=== PATIENT | male | born 1945 | race Caucasian/White ===

== ENCOUNTER 2017-01-05 07:30 | Inpatient (IN) | payer OTHER ==
--- NOTE | ~2017-01-05 | DS ---
Discharge Summary [facility] [address] [place]. [address] NAME: DANNY HUDSON SR : 44 STATUS : DIS IN PAT#: [id number] AGE: 71 ADM/REG DATE : 01/05/17 MR#: [id number] REPORT SERV DATE: 01/10/17 DICTATED BY: DARIO MONTOYA DATE: 01/09/17 REPORT STATUS : Draft TRANSCRIBED BY: MODL DATE: 01/09/17 ADMISSION DATE: 01/05/2017 DISCHARGE DATE: 01/09/2017 HOSPITAL COURSE: A 71-year-old male has a known history of diastolic heart failure; hypertrophic cardiomyopathy, status post septal myectomy; chronic COPD, on 2 L; chronic hypoxic respiratory failure, O2 dependent; CAD with history of CABG; paroxysmal atrial fibrillation, on Eliquis; CHRISTOPHER, noncompliant with CPAP; hypertension; hyperlipidemia; generalized anxiety disorder; depression; diabetes; hypothyroidism; CKD 3, baseline 1.5 to 1.9; PAD with subclavian stent and right carotid stent; secondary hypogonadism; pneumonia; peripheral neuropathy; known history of maze procedure. The patient came in, generalized weakness, went to the restroom. Did have presyncope to syncopal episode, left arm skin tear, dizziness. Significant nausea, vomiting, and diarrhea. The patient states he has been unable to afford going to his outpatient doctors. However, he apparently makes 1900 dollars for a month. Did try to request financial assistance. Had a CT abdomen and pelvis. Did not show any acute pathology. Trace intraperitoneal ascites identified. Heavy atherosclerosis in the aorta and multiple branches. Dr. Singh with GI was consulted for persistent nausea. He may well have had a vasovagal from his nausea. The patient has uncontrolled reflux as assessment. Placed on PPI b.i.d. Given cardiovascular risk, checked upper GI series for considering endoscopy. As a result, the patient had air contrast upper GI following oral ingestion of high-density barium CO2 crystals. Fluoro found small hiatal hernia and significant GERD of the cervical esophagus. The patient, as a result, feels much better. No more vomiting at this time with PPI b.i.d. therapy. Had an echocardiogram per patient request and showed moderate compromised left ventricle 35% compared to 45% in 12/2015. Severe anteroseptal hypokinesis has been noted previously. Severely compromised right ventricle, which has progressed. Moderately dilated left and right atria progressed, mild. AR is unchanged. As a result, the patient is to follow up with his heart physician. Did not endorse any chest pain or chest pressure. Did have some mild hypoglycemia, as the patient was more compliant with diet here in the hospital. Reduced his Levemir at night. 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 We will ask case management again to help with financial assistance and help with medication assistance and the patient access as an outpatient. Needs to follow up with Nephrology for CKD. Likely maximize his DILIP inhibitor as well as knowing that the patient used to spend two minutes going from a lying to standing position given significant orthostasis likely due to diabetic autonomic neuropathy. The patient also possibly has diabetic gastroparesis. Will need nuclear medicine study as an outpatient to confirm. In the interim, we will just need to maintain continued euglycemia. Given his CKD, reduced his Eliquis at this time. Defer to his store protection specialist regarding further titration. Family wanted the patient to go to the facility and try to facilitate; however, given the fact that Physical Therapy said he can go home with Home Health, the patient is not interested in paying out a cost at this time. DISCHARGE MEDICATIONS: Include Norvasc 5 p.o. daily; apixaban 2.5 p.o. b.i.d.; Lipitor 40 p.o. daily; as well as Plavix 75 p.o. daily; Cymbalta 60 p.o. q.h.s.; Zantac p.r.n.; gabapentin 300 p.o. b.i.d.; NovoLog sliding scale, see order set; insulin regular 8 to 12 Discharge Summary [facility] [id number] [facility] [place]. [address] NAME: DANNY HUDSON : 44 STATUS : DIS IN PAT#: [id number] AGE: 71 ADM/REG DATE : 01/05/17 MR#: [id number] REPORT SERV DATE: 01/10/17 DICTATED BY: DARIO MONTOYA DATE: 01/09/17 REPORT STATUS : Draft TRANSCRIBED BY: MODL DATE: 01/09/17 units subcu t.i.d. before meals; Synthroid 75 mcg p.o. q.a.m.; lisinopril 2.5 p.o. daily; metoprolol tartrate 50 p.o. b.i.d., consider possible carvedilol as an outpatient; Protonix 40 p.o. b.i.d., needs to do this for least three months and PPI p.o. daily thereafter; Spiriva 18 mcg capsule inhaled daily; Levemir Lantus 18 units subcu q.h.s.; Lasix 40 p.o. daily; Crestor 20 p.o. q.h.s. rather than Lipitor; we will hold off on the Imdur given his relatively normotensive state, give Lasix 20 mg p.o. daily p.r.n. increased swelling, shortness of breath, or weight gain more than or equal to 2 pounds. We will also educate the patient on spending two minutes from supine to standing transition to reduce orthostasis. CONSULTS: GI. PROCEDURES: See above including echo, which was requested by the family. Had stool studies that were negative. Did have some staph in his stool, looked like colonization given his procal was totally normal and had no white count abnormalities. C diff was negative. Crypto was negative. Blood cultures, all no growth to date. DISCHARGE DIAGNOSES: Nausea, vomiting, diarrhea, gastroesophageal reflux disease, orthostasis, chronic obstructive pulmonary disease, atrial fibrillation, chronic kidney disease 3, insulin-dependent diabetes likely autonomic neuropathy, orthostasis, likely gastroparesis. Pursue possible Reglan versus oral erythromycin as an outpatient. Nuclear medicine scan to confirm this. ROSARIO/RENETTA Dario Montoya DO / [id number] CC: DO Ivone Zelaya M.D.
--- NOTE | ~2017-01-05 | CN ---
Consultation Report [facility] [address] [place]. [address] NAME: DANNY HUDSON SR : 44 STATUS : ADM IN PAT#: [id number] AGE: 71 ADM/REG DATE : 01/05/17 MR#: [id number] REPORT SERV DATE: 01/07/17 DICTATED BY: VIOLETTE SINGH DATE: 01/07/17 REPORT STATUS : Draft TRANSCRIBED BY: RENETTA DATE: 01/07/17 GI CONSULTATION NOTE DATE OF CONSULTATION: 01/06/2017 REASON FOR CONSULTATION: Persistent nausea. HISTORY OF PRESENT ILLNESS: Mr. Hudson is a 71-year-old, white male who initially presented to [facility] with generalized weakness, however in the past few months, he also has had syncopal episode with dizziness which precipitated his admission, and GI is consulted because of his chronic nausea, vomiting, and more recent diarrhea. He reports that over the past 6 to 8 weeks, he has noticed increased regurgitation especially at night and has occasional dysphagia. He reports that when he eats food, on occasion it will come back up with sour eructation. He reports nonbloody soft to watery stools on occasion as well. He has a history of diastolic heart failure with peripheral arterial disease, hypertrophic cardiomyopathy, chronic kidney disease, stage III. He is status post CABG with Maze procedure, mitral valve repair, and myectomy of the septum. He is currently tolerating a liquid diet without any emesis. PAST MEDICAL HISTORY: Diastolic heart failure, hypertrophic cardiomyopathy, peripheral arterial disease, chronic kidney disease stage III, COPD on 2 L of oxygen, coronary artery disease, status post CABG, atrial fibrillation, obstructive sleep apnea, hypertension, dyslipidemia, anxiety, depression, diabetes, and hypothyroidism. PAST SURGICAL HISTORY: Septal myectomy, CABG with maze procedure, mitral valve repair, and penile implant. SOCIAL HISTORY: Quit tobacco in 1991. Denies any alcohol or drug use. FAMILY HISTORY: Coronary artery disease and leukemia. MEDICATIONS: Reviewed. ALLERGIES: REVIEWED. PHYSICAL EXAMINATION: VITAL SIGNS: The patient is afebrile. His vital signs are stable. GENERAL: The patient is awake, alert, and oriented x3. Well developed, well nourished, morbidly obese, in no acute distress. HEENT: Atraumatic, normocephalic, and anicteric. Mucous membranes moist. CARDIAC: S1, S2 with murmur 4/6. CHEST: Clear but decreased breath sounds bilaterally. ABDOMEN: Obese, soft, nontender, and nondistended. Bowel sounds normoactive. Consultation Report [facility] [address] [place]. [address] NAME: DANNY HUDSON SR : 44 STATUS : ADM IN PAT#: [id number] AGE: 71 ADM/REG DATE : 01/05/17 MR#: [id number] REPORT SERV DATE: 01/07/17 DICTATED BY: VIOLETTE SINGH DATE: 01/07/17 REPORT STATUS : Draft TRANSCRIBED BY: RENETTA DATE: 01/07/17 LABORATORY DATA: Show WBC 8.2, hemoglobin 11.6, hematocrit 35, platelets 175, and MCV is 85. Sodium 137, potassium 4, chloride 99, bicarb 28, BUN 28, creatinine 1.8, and glucose 68. Liver enzymes normal. Lipase normal. IMPRESSION AND PLAN: Sounds like the patient has uncontrolled reflux. He is on Protonix which he has been taking chronically at home at night. We would make sure he is on his pantoprazole 40 mg p.o. daily and taken on an empty stomach in the morning and then eating 30 to 60 minutes later. We will also check stool antigen for H. pylori and followup on his stool studies. Given the patient's cardiovascular risk, we will check an upper GI series before considering EGD and we will follow up on this exam. Continue diet and advance as tolerated. We will continue to follow with you. JESSENIA/RENETTA Violette Singh MD / [id number] CC: DO Ivone Zelaya M.D.
--- NOTE | ~2017-01-05 | HP ---
History And Physical [facility] [id number] [place]. [address] NAME: DANNY HUDSON SR : 44 STATUS : ADM IN PAT#: [id number] AGE: 71 ADM/REG DATE : 01/05/17 MR#: [id number] REPORT SERV DATE: 01/05/17 DICTATED BY: MLIO KIM DATE: 01/05/17 REPORT STATUS : Draft TRANSCRIBED BY: RENETTA DATE: 01/05/17 DATE OF ADMISSION: 01/05/2017 CHIEF COMPLAINT: Multiple. HISTORY OF PRESENT ILLNESS: The patient is a very pleasant 71-year-old white male with multitude of medical problems. The patient comes in today reporting generalized weakness. He states today he got up to go to the bathroom and returned to his bed and had a syncopal episode where he fell against the nightstand into the floor. He suffered a left arm skin tear. He states he has been weak and dizzy for about three weeks. Symptoms definitely get worse when he stands. He has also noted for the last month, he has had intermittent diarrhea, nausea, vomiting, diminished appetite, diminished p.o. intake. He states he vomits or has an episode of diarrhea pretty much every day. He has not had any documented fevers. He has not had any abdominal pain. He has not had any chest pain. The dizziness and weakness seemed to occur with activity when he gets up to walk around. He has not had any recent antibiotics and can really provide no further history. PAST MEDICAL HISTORY: 1. Diastolic heart failure. 2. Hypertrophic cardiomyopathy. 3. History of septal myectomy. 4. COPD on 2 L of O2. 5. CAD with history of CABG. 6. Atrial fibrillation, on chronic anticoagulation. 7. CHRISTOPHER, but noncompliant with CPAP. 8. Hypertension. 9. Hyperlipidemia. 10.Anxiety. 11.Depression. 12.Diabetes. 13.Hypothyroidism. 14.CKD stage 3 with baseline creatinine around 1.5 to 1.9. 15.PAD with a subclavian stent and right carotid stent. 16.Peripheral neuropathy. 17.Low testosterone. 18.Pneumonia. PAST SURGICAL HISTORY: 1. He has had a CABG and Maze procedure. 2. Mitral valve repair. 3. Septal myectomy. 4. Penile implant. ALLERGIES: POSSIBLY TO BUMEX. SOCIAL HISTORY: He is . He lives with his common-law . He quit smoking in History And Physical [address] [address] NAME: DANNY HUDSON SR : 44 STATUS : ADM IN PAT#: [id number] AGE: 71 ADM/REG DATE : 01/05/17 MR#: [id number] REPORT SERV DATE: 01/05/17 DICTATED BY: MILO KIM DATE: 01/05/17 REPORT STATUS : Draft TRANSCRIBED BY: RENETTA DATE: 01/05/171991. He does not drink alcohol. FAMILY HISTORY: His father had CAD and leukemia. His mother is an alcoholic. HOME MEDICATIONS: Reviewed and attached. REVIEW OF SYSTEMS: Full 10-point review of systems obtained. Pertinent positives mentioned in the HPI. PHYSICAL EXAMINATION: VITAL SIGNS: Blood pressure 114/52, temperature 98.2, pulse 63, respiratory rate 22, and sats are 97%. GENERAL: Well-developed white male, in no obvious distress. HEENT: Normocephalic, atraumatic. Throat is clear. NECK: Supple. HEART: Regular rate and rhythm. A 3/6 systolic ejection murmur heard best at the left upper sternal border. LUNGS: Grossly clear. ABDOMEN: Soft, nondistended, nontender. Positive bowel sounds are noted. EXTREMITIES: Warm and dry. Skin is intact. He has no peripheral edema. Pulses are 2+ at the feet. NEUROLOGIC: He is alert. He is oriented to person, place, and time. He has symmetrical strength and tone in all four extremities but he is generally weak. LABORATORY AND X-RAY: H and H are 12 and 36, white count 9.2, and platelets 171. Coags are normal. Sodium 133, potassium 5, chloride 98, CO2 of 26, BUN and creatinine of 27 and 1.73. Glucose 206. LFTs are normal. Albumin is 2.8. Troponin is 0.05. Lipase is normal. CT of the abdomen and pelvis really does not show anything significant that is acute and he has some mild interstitial edema on his chest x-ray. EKG shows atrial fibrillation, it is unchanged from previous. ASSESSMENT/PLAN: 1. Syncope, question if due to orthostasis related to a month of intermittent GI symptoms. I am going to give him some gentle fluids and check orthostatic blood pressure and pulse. If he is not orthostatic and he does not have any additional diarrhea, nausea, and vomiting, we may have to consider other etiology and have to take a closer look at his heart with echocardiogram. We will see how he does over the next 23 hours with the fluids, orthostatics, and addressing his nausea, vomiting, and diarrhea. 2. Nausea, vomiting, and diarrhea. We will send stool for Clostridium difficile, O and P, and culture, if he has diarrhea, we will also give him some Zofran p.r.n. for his nausea and vomiting and see if we can find a cause for the above. 3. History of diastolic heart failure with hypertrophic cardiomyopathy. Again depending on how his symptoms do with gentle hydration, we may need to get an echo and relook at things. 4. History of atrial fibrillation, on chronic anticoagulation. Stable and rate controlled. 5. COPD on 2 L of O2, currently not wheezing, sats are excellent. 6. History of CHRISTOPHER, noncompliant. History And Physical [address] [address] NAME: DANNY HUDSON : 44 STATUS : ADM IN PAT#: [id number] AGE: 71 ADM/REG DATE : 01/05/17 MR#: [id number] REPORT SERV DATE: 01/05/17 DICTATED BY: MILO KIM DATE: 01/05/17 REPORT STATUS : Draft TRANSCRIBED BY: RENETTA DATE: 01/05/17 7. Diabetes mellitus. We will add some sliding scale to his regimen. 8. CKD stable. 9. Deep venous thrombosis prophylaxis already anticoagulated. 10.Disposition pending above. SUGAR/RENETTA Milo Kim M.D. / [id number] CC: Ramin Fields M.D.
[2017-01-05 05:49] LABS: BASOPHILS 0.7 %; BASOPHILS ABSOLUTE 0.06 10/3/uL (0.0-0.16); EOSINOPHILS 0.9 %; EOSINOPHILS ABSOLUTE 0.08 10/3/uL (0.0-0.53); HEMATOCRIT 36.4 % (40.0-51.0); HEMOGLOBIN 11.9 g/dL (13.6-17.8); IMMATURE GRANULOCYTES 0.3 %; IMMATURE GRANULOCYTES ABSOLUTE 0.03 10/3/uL (0.0-0.11); LYMPHOCYTES 13.9 %; LYMPHOCYTES ABSOLUTE 1.27 10/3/uL (0.67-4.30); MEAN CORPUSCULAR HEMOGLOB 27.4 pg (26.0-34.0); MEAN PLATELET VOLUME 9.7 fL (9.2-13.0); NEUTROPHILS 72.2 %; NEUTROPHILS ABSOLUTE 6.61 10/3/uL (2.02-8.40); PLATELET COUNT 171 10/3/uL (150-400); RBC DISTRIBUTION WIDTH 17.8 % (12.0-16.0); RED CELL COUNT 4.35 10/6/uL (4.7-6.1); WHITE BLOOD CELLS 9.2 10/3/uL (4.5-10.5)
[2017-01-05 05:54] LABS: MANUAL DIFF NO %; MEAN CORPUS HGB CONC 32.7 g/dL (32.0-36.0); MEAN CORPUSCULAR VOLUME 83.7 fL (80-100)
[2017-01-05 05:58] LABS: PARTIAL THROMBO TIME 39.7 SEC (22.5-37.2)
[2017-01-05 06:00] LABS: INTERNATIONAL NORMAL RATI 1.5 UNITS (-); PROTIME (NOT ORD) 18.4 SEC (12.0-14.5)
[2017-01-05 06:07] LABS: ALBUMIN 2.8 G/DL (3.5-5.0); BUN (BLOOD UREA NITROGEN) 27 MG/DL (6-23); CALCIUM, SERUM 8.8 MG/DL (8.5-10.4); CHLORIDE, SERUM 98 MMOL/L (96-112); CO2 (CARBON DIOXIDE) 26 MMOL/L (24-34); CREATININE 1.73 MG/DL (0.70-1.30); DIRECT BILIRUBIN 0.3 MG/DL (0.0-0.4); GFR AFRICAN AMERICAN 45 ML/MIN (>=60); GFR NON AFRICAN AMERICAN 39 ML/MIN (>=60); INDIRECT BILIRUBIN(NOT ORDER) 0.4 MG/DL (0.1-0.9); SGOT(AST) 18 U/L (5-40); SGPT(ALT) 15 U/L (5-65); SODIUM, SERUM 133 MMOL/L (135-148); TOTAL BILIRUBIN 0.7 MG/DL (0-1.2); TOTAL PROTEIN 7.1 G/DL (6.0-8.5)
[2017-01-05 06:08] LABS: ALKALINE PHOSPHATASE 115 U/L (45-117); GLUCOSE, SERUM 206 MG/DL (60-99)
[2017-01-05 06:09] LABS: CHEST PAIN PROFILE TAT 0 Hrs 24 Mins; TROPONIN I 0.05 NG/ML (<0.05)
[~2017-01-05 07:30] MED LIST: ADVAIR250 INH; ALPHAGAN P0.1 % OPH; AMLODIPINE PO; APRES25 PO; ASA5GR PO; ASAB PO; BION TEARS OP; CEFT5 PO; CELEXA10 PO; CENTRUM PO; CIP5 PO; CORDARONE PO; COREG12 PO; CRESTOR PO; CRESTOR20 MG PO; CYMBALTA60 PO; ELIQUIS 5 MG TAB5 MG PO; FLEX PO; GLUCOPHAGE1000 MG PO; HALF81 PO; IMDUR30 PO; INSNOVR SC; ISOSORBIDE PO; JANUVIA100 MG PO; KDUR20 PO; KLONO5 PO; KLOR-CON M2020 MEQ PO; L40 PO; L80 PO; LANTUS SC; LEVOTHYROXIN50 MCG PO; LEVOTHYROXINE PO; LEXAPRO10 PO; LIPITOR40 PO; LOP100 PO; LOP25 PO; LOP50 PO; MAG6464 MG PO; MAGNESIUM PO; METOPROLOL PO; MINITRAN0.2 MG/HR TOP; MULTIPLE VIT PO; MULTIVITAMI1 PO; NEUR300 PO; NEUR600 PO; NITROSTAT0.4 MG SL; NORCO1 TA2 PO; NORV10 PO; NORV5 PO; OMNICEF300 PO; PEP20 PO; PLAVIX PO; POTASSIUM PO; PRILO PO; PRIN10 PO; PRIN20 PO; PROAIR HFA INH; RX EYE DROP OPH; SPIRIVA RESPIMAT INH; SYN075 PO; TESSALON200 MG PO; TOPXL25 PO; TOPXL50 PO; TYLENOL 8 HR650 MG PO; VERELAN120 MG PO; VICODINTAB PO; WELLSR150 PO; WELLXL150 PO; ZOCOR20 PO
[2017-01-05] MEDS ORDERED: PROTONIX PO (08:22)
[2017-01-05 13:09] LABS: PHOSPHORUS, SERUM 3.2 MG/DL (2.5-4.5)
[2017-01-06 01:56] LABS: BASOPHILS 0.6 %; BASOPHILS ABSOLUTE 0.05 10/3/uL (0.0-0.16); EOSINOPHILS 1.9 %; EOSINOPHILS ABSOLUTE 0.16 10/3/uL (0.0-0.53); HEMOGLOBIN 11.6 g/dL (13.6-17.8); IMMATURE GRANULOCYTES 0.4 %; IMMATURE GRANULOCYTES ABSOLUTE 0.03 10/3/uL (0.0-0.11); LYMPHOCYTES 15.6 %; LYMPHOCYTES ABSOLUTE 1.28 10/3/uL (0.67-4.30); MEAN CORPUS HGB CONC 33.1 g/dL (32.0-36.0); MEAN CORPUSCULAR HEMOGLOB 28.3 pg (26.0-34.0); MEAN CORPUSCULAR VOLUME 85.4 fL (80-100); MONOCYTES 11.8 %; MONOCYTES ABSOLUTE 0.97 10/3/uL (0.21-1.20); NEUTROPHILS 69.7 %; NEUTROPHILS ABSOLUTE 5.72 10/3/uL (2.02-8.40); PLATELET COUNT 174 10/3/uL (150-400); RBC DISTRIBUTION WIDTH 17.7 % (12.0-16.0); WHITE BLOOD CELLS 8.2 10/3/uL (4.5-10.5)
[2017-01-06 01:57] LABS: MANUAL DIFF NO %
[2017-01-06 02:11] LABS: BUN (BLOOD UREA NITROGEN) 28 MG/DL (6-23); CALCIUM, SERUM 8.7 MG/DL (8.5-10.4); CHLORIDE, SERUM 99 MMOL/L (96-112); CO2 (CARBON DIOXIDE) 28 MMOL/L (24-34); CREATININE 1.81 MG/DL (0.70-1.30); GFR AFRICAN AMERICAN 42 ML/MIN (>=60); GFR NON AFRICAN AMERICAN 37 ML/MIN (>=60); GLUCOSE, SERUM 68 MG/DL (60-99); SODIUM, SERUM 137 MMOL/L (135-148); TROPONIN I 0.03 NG/ML (<0.05)
[2017-01-06 18:33] LABS: T4 (THYROXINE) TOTAL 3.7 MCG/DL (4.5-12.0); TROPONIN I 0.03 NG/ML (<0.05)
[2017-01-06 23:43] LABS: PROCALCITONIN 0.07 ng/mL (<0.5)
[2017-01-07 04:41] LABS: BASOPHILS 0.6 %; BASOPHILS ABSOLUTE 0.05 10/3/uL (0.0-0.16); EOSINOPHILS 1.5 %; EOSINOPHILS ABSOLUTE 0.13 10/3/uL (0.0-0.53); HEMATOCRIT 36.2 % (40.0-51.0); HEMOGLOBIN 11.9 g/dL (13.6-17.8); IMMATURE GRANULOCYTES 0.5 %; IMMATURE GRANULOCYTES ABSOLUTE 0.04 10/3/uL (0.0-0.11); LYMPHOCYTES 14.8 %; LYMPHOCYTES ABSOLUTE 1.25 10/3/uL (0.67-4.30); MANUAL DIFF NO %; MEAN CORPUS HGB CONC 32.9 g/dL (32.0-36.0); MEAN CORPUSCULAR HEMOGLOB 28.1 pg (26.0-34.0); MEAN CORPUSCULAR VOLUME 85.4 fL (80-100); MEAN PLATELET VOLUME 10.6 fL (9.2-13.0); MONOCYTES 11.4 %; MONOCYTES ABSOLUTE 0.96 10/3/uL (0.21-1.20); NEUTROPHILS 71.2 %; PLATELET COUNT 196 10/3/uL (150-400); RBC DISTRIBUTION WIDTH 17.8 % (12.0-16.0); RED CELL COUNT 4.24 10/6/uL (4.7-6.1); WHITE BLOOD CELLS 8.4 10/3/uL (4.5-10.5)
[2017-01-07 04:53] LABS: CHLORIDE, SERUM 101 MMOL/L (96-112); CO2 (CARBON DIOXIDE) 27 MMOL/L (24-34); CREATININE 1.65 MG/DL (0.70-1.30); FREE T4 0.76 NG/DL (0.76-1.46); GFR AFRICAN AMERICAN 47 ML/MIN (>=60); GFR NON AFRICAN AMERICAN 41 ML/MIN (>=60); GLUCOSE, SERUM 67 MG/DL (60-99); PHOSPHORUS, SERUM 3.7 MG/DL (2.5-4.5); SODIUM, SERUM 135 MMOL/L (135-148)
[2017-01-07 04:54] LABS: BUN (BLOOD UREA NITROGEN) 33 MG/DL (6-23)
[2017-01-08 06:12] LABS: BASOPHILS 0.7 %; BASOPHILS ABSOLUTE 0.06 10/3/uL (0.0-0.16); EOSINOPHILS 1.2 %; HEMATOCRIT 37.5 % (40.0-51.0); HEMOGLOBIN 12.1 g/dL (13.6-17.8); IMMATURE GRANULOCYTES 0.4 %; IMMATURE GRANULOCYTES ABSOLUTE 0.03 10/3/uL (0.0-0.11); LYMPHOCYTES 13.5 %; LYMPHOCYTES ABSOLUTE 1.12 10/3/uL (0.67-4.30); MEAN CORPUS HGB CONC 32.3 g/dL (32.0-36.0); MEAN CORPUSCULAR HEMOGLOB 27.4 pg (26.0-34.0); MEAN PLATELET VOLUME 10.4 fL (9.2-13.0); MONOCYTES 9.2 %; MONOCYTES ABSOLUTE 0.76 10/3/uL (0.21-1.20); NEUTROPHILS ABSOLUTE 6.21 10/3/uL (2.02-8.40); PLATELET COUNT 204 10/3/uL (150-400); RED CELL COUNT 4.41 10/6/uL (4.7-6.1); WHITE BLOOD CELLS 8.3 10/3/uL (4.5-10.5)
[2017-01-08 06:19] LABS: MANUAL DIFF NO %
[2017-01-08 06:25] LABS: BUN (BLOOD UREA NITROGEN) 30 MG/DL (6-23); CALCIUM, SERUM 8.8 MG/DL (8.5-10.4); CHLORIDE, SERUM 99 MMOL/L (96-112); CO2 (CARBON DIOXIDE) 28 MMOL/L (24-34); CREATININE 1.55 MG/DL (0.70-1.30); GFR AFRICAN AMERICAN 51 ML/MIN (>=60); GFR NON AFRICAN AMERICAN 44 ML/MIN (>=60); GLUCOSE, SERUM 120 MG/DL (60-99); PHOSPHORUS, SERUM 3.6 MG/DL (2.5-4.5); SODIUM, SERUM 132 MMOL/L (135-148)
[2017-01-09 08:50] LABS: BASOPHILS 0.6 %; BASOPHILS ABSOLUTE 0.05 10/3/uL (0.0-0.16); EOSINOPHILS 1.4 %; EOSINOPHILS ABSOLUTE 0.11 10/3/uL (0.0-0.53); HEMATOCRIT 38.5 % (40.0-51.0); HEMOGLOBIN 12.5 g/dL (13.6-17.8); IMMATURE GRANULOCYTES 0.5 %; IMMATURE GRANULOCYTES ABSOLUTE 0.04 10/3/uL (0.0-0.11); LYMPHOCYTES 14.9 %; LYMPHOCYTES ABSOLUTE 1.16 10/3/uL (0.67-4.30); MEAN CORPUS HGB CONC 32.5 g/dL (32.0-36.0); MEAN CORPUSCULAR HEMOGLOB 27.8 pg (26.0-34.0); MEAN CORPUSCULAR VOLUME 85.7 fL (80-100); MEAN PLATELET VOLUME 10.1 fL (9.2-13.0); MONOCYTES 13.2 %; MONOCYTES ABSOLUTE 1.03 10/3/uL (0.21-1.20); NEUTROPHILS 69.4 %; NEUTROPHILS ABSOLUTE 5.41 10/3/uL (2.02-8.40); PLATELET COUNT 190 10/3/uL (150-400); RBC DISTRIBUTION WIDTH 18.3 % (12.0-16.0); RED CELL COUNT 4.49 10/6/uL (4.7-6.1); WHITE BLOOD CELLS 7.8 10/3/uL (4.5-10.5)
[2017-01-09 08:51] LABS: MANUAL DIFF NO %
[2017-01-09 09:10] LABS: BUN (BLOOD UREA NITROGEN) 31 MG/DL (6-23); CALCIUM, SERUM 8.6 MG/DL (8.5-10.4); CHLORIDE, SERUM 98 MMOL/L (96-112); CO2 (CARBON DIOXIDE) 29 MMOL/L (24-34); CREATININE 1.54 MG/DL (0.70-1.30); GFR AFRICAN AMERICAN 51 ML/MIN (>=60); GFR NON AFRICAN AMERICAN 44 ML/MIN (>=60); GLUCOSE, SERUM 105 MG/DL (60-99); PHOSPHORUS, SERUM 3.8 MG/DL (2.5-4.5); POTASSIUM, SERUM 4.6 MMOL/L (3.5-5.3); SODIUM, SERUM 132 MMOL/L (135-148)
[2017-01-09] MEDS ORDERED: DSS PO (14:53)
[2017-01-09] MEDS ORDERED: ELIQUIS 2.5 MG2.5 MG PO (14:53)
[2017-01-09] MEDS ORDERED: ZANTAC300 MG PO (14:53)
[2017-01-09] MEDS ORDERED: L80 PO (14:54)
[2017-01-09] MEDS ORDERED: SPIRIVA INH (14:54)
[2017-01-09] MEDS ORDERED: PROTONIX PO (14:54)
[2017-01-09] MEDS ORDERED: ZESTRIL5 MG PO (14:56)
[2017-01-09] MEDS ORDERED: L20 PO (14:57)
[2017-01-09] MEDS ORDERED: ZOFRAN4 PO (14:58)
[2017-01-09] MEDS ORDERED: LANTUS SC (14:58)
[2017-01-09] MEDS ORDERED: KLOR-CON M2020 MEQ PO (14:59)
[2017-01-09] MEDS ORDERED: NOVOLOG SC (15:01)
== END 2017-01-09 16:48 | disposition home or self-care (01) | DRG 74 ==
LOC: ER 07:30 → 1SO 08:46
PROVIDERS: Internal Medicine; Specialist
DX: E11.43 Type 2 diabetes mellitus with diabetic autonomic (poly)neuropathy (principal); J96.10 Chronic respiratory failure, unspecified whether with hypoxia or hypercapnia; I42.8 Other cardiomyopathies; I13.0 Hypertensive heart and chronic kidney disease with heart failure and stage 1 through stage 4 chronic kidney disease, or unspecified chronic kidney disease; I50.42 Chronic combined systolic (congestive) and diastolic (congestive) heart failure; E11.22 Type 2 diabetes mellitus with diabetic chronic kidney disease; E66.01 Morbid (severe) obesity due to excess calories; K31.84 Gastroparesis; I95.1 Orthostatic hypotension; R19.7 Diarrhea, unspecified; E78.5 Hyperlipidemia, unspecified; N18.3 Chronic kidney disease, stage 3 (moderate); I73.9 Peripheral vascular disease, unspecified; G47.33 Obstructive sleep apnea (adult) (pediatric); E03.9 Hypothyroidism, unspecified; J44.9 Chronic obstructive pulmonary disease, unspecified; Z99.81 Dependence on supplemental oxygen; K44.9 Diaphragmatic hernia without obstruction or gangrene; I48.2 Chronic atrial fibrillation; E11.649 Type 2 diabetes mellitus with hypoglycemia without coma; K21.9 Gastro-esophageal reflux disease without esophagitis; F41.1 Generalized anxiety disorder; F32.9 Major depressive disorder, single episode, unspecified; I25.10 Atherosclerotic heart disease of native coronary artery without angina pectoris; W18.30XA Fall on same level, unspecified, initial encounter; Z79.01 Long term (current) use of anticoagulants; Z79.02 Long term (current) use of antithrombotics/antiplatelets; Z79.4 Long term (current) use of insulin; Z79.899 Other long term (current) drug therapy; Z87.891 Personal history of nicotine dependence; Z95.1 Presence of aortocoronary bypass graft; Z91.19 Patient's noncompliance with other medical treatment and regimen; Z87.01 Personal history of pneumonia (recurrent); Z88.8 Allergy status to other drugs, medicaments and biological substances
CPT/HCPCS: 71010; 74176; 74246; 80048; 80076; 81001; 82533; 82962; 83690; 83735; 84100; 84145; 84436; 84439; 84443; 84484; 85025; 85610; 85730; 87040; 87045; 87046; 87046-59; 87328; 87329; 87493; 87493-59; 87899; 87899-59; 89055; 93005; 97116-GP; 97161-GP; 99285; A9270-GY; C8929; G8978-CK-GP; G8979-CI-GP; J2405; Q9957

== ENCOUNTER 2017-01-25 14:37 | Inpatient (IN) | payer OTHER ==
--- NOTE | ~2017-01-25 | DS ---
Discharge Summary [facility] [address] [place]. [address] NAME: DANNY HUDSON SR : 44 STATUS : DIS IN PAT#: [id number] AGE: 71 ADM/REG DATE : 01/25/17 MR#: [id number] REPORT SERV DATE: 02/05/17 DICTATED BY: DATE: REPORT STATUS : Draft TRANSCRIBED BY: MODL DATE: 02/04/17 ADMISSION DATE: 01/25/2017 DISCHARGE DATE: 02/04/2017 DISCHARGE DIAGNOSES: 1. Acute on chronic respiratory failure. 2. Acute exacerbation of combined congestive heart failure. 3. Hyponatremia, mild. 4. Chronic kidney disease, stage III. 5. Chronic atrial fibrillation. 6. Hypokalemia. 7. Type 2 diabetes mellitus insulin dependent. 8. Depression. 9. Constipation. CONSULTATIONS: 1. Dr. Solomon with Cardiology, 01/26/2017. 2. Dr. Jose Roberto Ruano, Psych, 02/02/2017. PERTINENT TESTS AND PROCEDURES: 1. Chest x-ray, 01/25/2017, impression: Developing right pleural effusion and right basilar consolidation with persistent or recurrent volume overload or CHF pattern. 2. KUB, 01/31/2017, impression: Moderate amount of fecal material in the colon. Unremarkable gas pattern. 3. Chest x-ray, 02/02/2017, impression: Continued cardiomegaly and interstitial edema, status post valvular heart repair with small right pleural effusion similar to prior exam. No dense consolidation. 4. Urine culture, specimen collected January 31 final result: Approximately 75,000 colonies per mL of urine, predominantly diphtheroid like organisms. HOSPITAL COURSE: Please refer to history and physical dictated 01/25/[address] Costa Hunt for complete details pertaining to patient's initial presentation upon admission and health history. Refer to consultations dated 01/26/[address] Juanito Dhaliwal, Cardiology and 02/02/[address] Jose Roberto Ruano, Psychiatry. Please also refer to interim discharge summary dated 01/31 covering dates of service between 01/25 and 01/31/[address] Carrie Ryder. Briefly, the patient is a 71-year-old male with a very complex medical history to include combined heart failure in the setting of hypertrophic obstructive cardiomyopathy with prior septal myectomy, coronary artery disease with prior CABG, chronic atrial fibrillation, hypertension, type 2 diabetes insulin dependent, and chronic kidney disease stage III. The patient presented to the emergency department on 01/25 with signs and symptoms of Discharge Summary [address] [place]. [address] NAME: DANNY HUDSON SR : 44 STATUS : DIS IN PAT#: [id number] AGE: 71 ADM/REG DATE : 01/25/17 MR#: [id number] REPORT SERV DATE: 02/05/17 DICTATED BY: DATE: REPORT STATUS : Draft TRANSCRIBED BY: MODL DATE: 02/04/17 significant volume overload. The patient presented with acute hypoxic respiratory failure secondary to acute exacerbation of systolic and diastolic heart failure. The patient was admitted for further evaluation and treatment. Cardiology was consulted on 01/26 for evaluation and recommendations. Cardiology agreed that the patient was on appropriate therapy including aggressive diuresing. Medication adjustments were made prior to discharge to include increasing torsemide to 100 mg p.o. every a.m. and metolazone 5 mg p.o. x1 dose and then 3 times weekly. Palliative Care was also consulted per request of Cardiology. Palliative Care met with the patient and significant other. The patient agreed to hospice consult. The patient expressed his wishes to go home with Hospice upon discharge. 1. Combined congestive heart failure. The patient has a history of hypertrophic cardiomyopathy, for which he has undergone myectomy. The patient was also recently found to have further decline in LV function 35-45% and severely compromised right ventricle. The patient suffered acute exacerbation due to significant volume overload that occurred prior to this admission. The patient responded well to aggressive diuresing. Cardiology adjusted diuretics and it is recommended this be continued after discharge under the care of hospice. 2. Acute on chronic respiratory failure. The patient is supplemental O2 dependent. Change in respiratory status was secondary to significant volume overload. The patient has now returned to baseline status with aggressive diuresing. The patient is saturating 93% on 3 L supplemental O2. 3. Chronic kidney disease stage III. The patient's baseline creatinine ranges between 1.6 and 1.7 upon admission. The patient's creatinine was reported to be 1.89. Creatinine trended down daily with diuresing and is at baseline of 1.53 on day of discharge. 4. Hyponatremia, mild. The patient's sodium was 130 on the day of discharge. This is likely related to recent aggressive diuresing to treat gross volume overload. 5. Chronic atrial fibrillation. The patient is on chronic anticoagulation with Eliquis. 6. Hypokalemia, mild secondary to diuresing. 7. Type 2 diabetes. The patient's blood glucose has remained stable after reducing nighttime dose of Levemir to 15 units subcu. 8. Depression. The patient underwent psych evaluation by Dr. Ruano during this admission. Diagnosis was depression associated with general medical condition. Recommendation was to continue patient's home dose of Cymbalta 60 mg p.o. daily. 9. Constipation. The patient declined enema or suppository last night. However, did take Senokot, will continue with that. A bowel regimen is prescribed by [facility] once discharged home. DISCHARGE MEDICATIONS: To be reconciled per physician of [facility]. DISCHARGE CONDITION: At the time of discharge, the patient is hemodynamically stable. DISCHARGE DIET: ADA 2000 calorie diet. DISCHARGE INSTRUCTIONS: All future plans of care will be arranged per physician at [facility]. Discharge Summary [address] [address] NAME: DANNY HDUSON SR : 44 STATUS : DIS IN PAT#: [id number] AGE: 71 ADM/REG DATE : 01/25/17 MR#: [id number] REPORT SERV DATE: 02/05/17 DICTATED BY: DATE: REPORT STATUS : Draft TRANSCRIBED BY: RENETTA DATE: 02/04/17 DICTATED BY: BREANNA Ferreira Bea/RENETTA BREANNA Ferreira / [id number] CC: MD Ivone Terrazas II, M.D.
--- NOTE | ~2017-01-25 | CN ---
Consultation Report [facility] [address] [place]. [address] NAME: DANNY HUDSON SR : 44 STATUS : ADM IN PAT#: [id number] AGE: 71 ADM/REG DATE : 01/25/17 MR#: [id number] REPORT SERV DATE: 01/26/17 DICTATED BY: SHEREE DHALIWAL DATE: 01/26/17 REPORT STATUS : Draft TRANSCRIBED BY: MODL DATE: 01/26/17 CONSULTATION DATE OF CONSULTATION: 01/26/2017 INDICATION: Biventricular failure. HISTORY: The patient is a 71-year-old white male who was recently discharged from [facility]. He returns with increasing breathlessness, lower extremity edema, fatigue and malaise. At his last admission, he was found to have further decline in LV function (35% to 45%) and a severely compromised right ventricle. The patient has a history of hypertrophic cardiomyopathy, for which he has undergone myomectomy. He also has undergone a maze procedure but has reverted to a chronic atrial fibrillation state with rate control strategy. He has obstructive sleep apnea and he is noncompliant with his CPAP mask. Presently, he is comfortable currently and on a furosemide drip (intolerant to Bumex). HOME MEDICATIONS: Norvasc 5 a day, Eliquis 2.5 b.i.d., Alphagan ophthalmologic three times a day, Clopidogrel 75 a day, Duloxetine 60 a day, furosemide 80 b.i.d., insulin glargine 34 units at bedtime and subcu before meals, isosorbide mononitrate 30 a day, levothyroxine 75 a day, lisinopril 5 daily, Amitiza 24 b.i.d. and p.r.n., metoclopramide 5 per day, metoprolol tartrate 50 b.i.d., vitamins with minerals, and potassium 20 a day. ALLERGIES OR INTOLERANCES: Bumex (tongue swelling and welts). SOCIAL HISTORY: Ex-tobacco user. Negative for alcohol, has one cup of coffee per day. FAMILY HISTORY: Negative for coronary artery disease at young age. PAST MEDICAL HISTORY/REVIEW OF SYSTEMS: In addition to the above, he has atherosclerotic coronary artery disease and previous bypass grafting, essential hypertension, mixed hyperlipidemia, type 2 diabetes, chronic kidney disease stage 3, COPD, and peripheral vascular disease. PHYSICAL EXAMINATION: GENERAL: A 71-year-old, white male, pleasant. VITAL SIGNS: Blood pressure 129/65, pulse 79 and irregular. HEENT: Normocephalic. JVD is elevated. CHEST: There are basilar crackles. CARDIAC: S1 variable, S2 singular. There is a 1/6 systolic ejection murmur, transmitted to the base. ABDOMEN: Protuberant. EXTREMITIES: +1 to +2 edema. NEUROLOGIC: No focal deficits. MUSCULOSKELETAL: No kyphosis. Consultation Report [address] [place]. [address] NAME: DANNY HUDSON SR : 44 STATUS : ADM IN PAT#: [id number] AGE: 71 ADM/REG DATE : 01/25/17 MR#: [id number] REPORT SERV DATE: 01/26/17 DICTATED BY: SHEREE DHALIWAL DATE: 01/26/17 REPORT STATUS : Draft TRANSCRIBED BY: RENETTA DATE: 01/26/17 LABORATORY DATA: BUN 36, creatinine 1.84, hemoglobin 9.6, potassium 3.4, BNP 2995. Other labs are pending. ECG shows atrial fibrillation with controlled response. No acute repolarization changes present. There is evidence for left ventricular hypertrophy, IMPRESSION: He is on appropriate therapies, will add Bumex, discontinue amlodipine. See recommendations. [facility]/RENETTA Sheree Dhaliwal M.D. / [id number] CC: Ramin Victoria M.D. [facility]
--- NOTE | ~2017-01-25 | CN ---
Consultation Report [facility] [address] [place]. [address] NAME: DANNY HUDSON SR : 44 STATUS : ADM IN PAT#: [id number] AGE: 71 ADM/REG DATE : 01/25/17 MR#: [id number] REPORT SERV DATE: 02/02/17 DICTATED BY: JOSE ROBERTO WATKINS DATE: 02/02/17 REPORT STATUS : Draft TRANSCRIBED BY: MODL DATE: 02/02/17 PSYCHIATRIC CONSULTATION DATE OF CONSULTATION: 02/02/2017 I reviewed this patient's medical record. I discussed the patient's status with his nurse. I did place a telephone call to his , but got no reply. HISTORY OF PRESENT ILLNESS: He was admitted with a recurrence of congestive heart failure and respiratory failure. He has advanced cardiomyopathy with atrial fibrillation. I was consulted to address depression. PAST PSYCHIATRIC HISTORY: His home medication list included Cymbalta 60 mg daily and Reglan 5 mg before meals. He said he was started on Cymbalta about two years ago. Because he was upset about and concerned about his 's illness, he said "they thought I was depressed." He feels he is not depressed, but he is dismayed by the ongoing medical problems. SOCIAL HISTORY: He is in a supportive second marriage for the past 14 years. MENTAL STATUS: He was easily aroused from sleep, but he remained drowsy throughout this examination. He tended to lapse back to sleep without verbal stimulation. His speech was limited and a little slurred. His mood appeared to be euthymic or perhaps a little dysphoric. He said he was distressed about his cardiac and respiratory problems, but he did not think he had any other mood issues. His thinking was logical. He had no delusions. He had no hallucinations. DIAGNOSIS: Depression, associated with a general medical condition. RECOMMENDATIONS: Continue Cymbalta 60 mg daily. I will sign off. MICHELLE/RENETTA Jose Roberto Watkins M.D. / [id number] CC: Ramin Kelsey M.D.
--- NOTE | ~2017-01-25 | HP ---
History And Physical [facility] [address] [place]. [address] NAME: DANNY HUDSON SR : 44 STATUS : ADM IN PAT#: [id number] AGE: 71 ADM/REG DATE : 01/25/17 MR#: [id number] REPORT SERV DATE: 01/25/17 DICTATED BY: Krzysztof ROJAS DATE: 01/25/17 REPORT STATUS : Draft TRANSCRIBED BY: MODL DATE: 01/25/17 DATE OF ADMISSION: 01/25/2017 HISTORY OF PRESENT ILLNESS: 71-year-old, male patient with a very complex medical history including systolic plus diastolic heart failure, with a history of hypertrophic obstructive cardiomyopathy with prior septal myectomy, was last admitted here in 12/2016 with heart failure. At that point, the family pushed for him to go to rehab, but he refused insisting on going home. He did have a new echocardiogram that admission that showed worsened left ventricular function of 35%, severely decreased right ventricular function and worsening dilation of the right and left atria. Today, the patient presents with gross volume overload on his x-ray, on his exam, and pertinent laboratory. He will now be admitted for further evaluation and treatment of exacerbation of heart failure. PAST MEDICAL HISTORY: Includes hypertrophic obstructive cardiomyopathy status post septal myectomy, coronary disease with prior CABG, chronic atrial fibrillation, untreated sleep apnea secondary to noncompliance, hypertension, depression, insulin-requiring diabetes, and chronic kidney disease stage 3, baseline creatinine 1.6 to 1.7. SOCIAL HISTORY: Lives with his . Social alcohol. No tobacco. REVIEW OF SYSTEMS: As per HPI. The patient has had worsening shortness of breath, worsening lower extremity edema, increasing fatigue. He denies krysten chest pain. He has had no melena, hematochezia, hemoptysis, or hematuria. No high fever. No shaking chills. No nausea or vomiting. Remainder of 10-point review of systems negative except as stated above. FAMILY HISTORY: Positive for heart disease. PHYSICAL EXAMINATION: VITAL SIGNS: Temperature is 98.0, heart rate 79, respirations 22, blood pressure is 112/61. GENERAL: This is a well-developed, chronically ill-appearing, obese male, in no distress. HEENT: Pupils are equal, round, and reactive to light. Extraocular muscles are intact. Oropharynx is clear. NECK: Without JVD, thyromegaly, or bruit. LUNGS: Rales noted in both bases. HEART: Irregular. No audible murmur. ABDOMEN: Obese, soft. Positive bowel sounds. EXTREMITIES: 2+ to 3+ edema bilaterally. NEUROLOGIC: Cranial nerves grossly intact. Motor exam shows diminished muscle function but it is not localized. Reflexes are diminished at the knee and ankle. Sensation diminished in the legs consistent with diabetic neuropathy. Gait was not assessed. GENITOURINARY AND RECTAL: Deferred. LABORATORY DATA: Sodium 130, potassium 4.9, chloride 97, bicarb 25, BUN 36, creatinine 1.89, white count is 9.6, hemoglobin 13.4, hematocrit 40.3, platelets 220. BNP is 2999. Troponin 0.05. History And Physical [address] [address] NAME: DANNY HUDSON SR : 44 STATUS : ADM IN [facility]#: [id number] AGE: 71 ADM/REG DATE : 01/25/17 MR#: [id number] REPORT SERV DATE: 01/25/17 DICTATED BY: Krzysztof ROJAS DATE: 01/25/17 REPORT STATUS : Draft TRANSCRIBED BY: RENETTA DATE: 01/25/17 IMPRESSION: 71-year-old, male patient with complex cardiac history. He presents with acute hypoxic respiratory failure secondary to systolic plus diastolic heart failure, acute on chronic in nature. Comorbidities as outlined above. PLAN: Admit to [facility] [facility]. Consult to Dr. Arambula, his legal administrative assistant. Electrolyte replacement guidelines, routine vitals, strict I's and O's. Daily weights. O2 support to keep sat greater than 90%. Serial BMP. Check magnesium, reasonable pain and nausea control will be offered. Level 2 subcutaneous sliding scale insulin to augment diabetic control. Start Bumex drip at 1 mg an hour and closely observe renal function and urinary output. Continue current home medications per med reconciliation form with the following exceptions; will hold lisinopril, hold potassium, and hold Lasix. Will change Lopressor to Coreg 6.25 b.i.d. Further recommendations for treatment pending observation of his clinical course, observation of his response to initial therapy, as well as review of input from Dr. Arambula, his legal administrative assistant. [facility]/RENETTA Krzysztof Rojas M.D. / [id number] CC: MD Ivone Sethi M.D.
--- NOTE | ~2017-01-25 | IDS ---
Interim Discharge Summary [facility] [address] [place]. [address] NAME: DANNY HUDSON SR : 44 STATUS : ADM IN PAT#: [id number] AGE: 71 ADM/REG DATE : 01/25/17 MR#: [id number] REPORT SERV DATE: 01/31/17 DICTATED BY: DAVID LAURA DATE: 01/31/17 REPORT STATUS : Draft TRANSCRIBED BY: RENETTA DATE: 01/31/17 ADMISSION DATE: 01/25/2017 DISCHARGE DATE: DIAGNOSES: 1. Hypoxic respiratory failure secondary to fluid overload. 2. [id number] diastolic congestive heart failure exacerbation with hypertrophic obstructive cardiomyopathy. 3. Hyponatremia. 4. Chronic kidney disease stage 3. 5. Type 2 diabetes. 6. Obstructive sleep apnea with home CPAP. 7. Chronic atrial fibrillation. 8. Hypothyroidism. 9. Chronic constipation. CONSULTANTS: 1. Cardiology with Dr. Juanito Dhaliwal. 2. Hospitalists; Dr. Costa Hunt, Dr. Laura. HOSPITAL COURSE: Please see H and P dictated by Dr. Costa Hunt. This is a 71-year-old male with a past medical history of cardiomyopathy with HOCM, chronic atrial fibrillation on anticoagulation, and obstructive sleep apnea and noncompliant with CPAP and history of type 2 diabetes, presented with fluid overload with shortness of breath. The patient was initially seen by Dr. Hunt. The patient was initiated on Bumex drip with good urine output. Also, Cardiology with Dr. Juanito Dhaliwal was consulted and assisted with the patient's care. The beta-mary was changed from Lopressor to Coreg for cardiac reasons. The patient continued to diurese well. He was taken off Bumex drip and changed over to torsemide by Cardiology. This torsemide has slowly been decreased from b.i.d. down to once a day within the past 24 hours. The patient has had intermittent constipation, for which the patient states this is something chronic that he deals with at home and it does require occasional laxatives and suppositories. However, due to his diuresing, he has now developed some hyponatremia, sodium has dropped to 129, therefore will follow up with repeat sodium labs today and further fluid restrict. The patient did have several episodes of an SVT. Cardiology was called and consulted and found to be within the stable limits. Cardiology at this time states the patient is okay to be discharged to [facility] from their standpoint. However, discharge will be held for the patient's electrolytes, also the sheet rock taper helper is yet to inform staff if patient is approved for [facility] and if so, possible discharge tomorrow or the following day. Also, the patient has been educated on compliance with his CPAP. He has refused CPAP on several occasions while sleeping. The patient will be seen by Dr. Juanito Mcclelland who will attend to this patient's care initiating on 02/01/2017. [facility]/RENETTA Interim Discharge Summary [address] [address] NAME: DANNY HUDSON : 44 STATUS : ADM IN PAT#: [id number] AGE: 71 ADM/REG DATE : 01/25/17 MR#: [id number] REPORT SERV DATE: 01/31/17 DICTATED BY: DAVID LAURA DATE: 01/31/17 REPORT STATUS : Draft TRANSCRIBED BY: RENETTA DATE: 01/31/17 David Laura M.D. / [id number] CC: Ramin Bethea M.D.
[~2017-01-25 14:37] MED LIST changes: +DSS PO; +ELIQUIS 2.5 MG2.5 MG PO; +L20 PO; +NOVOLOG SC; +PROTONIX PO; +SPIRIVA INH; +ZANTAC300 MG PO; +ZESTRIL5 MG PO; +ZOFRAN4 PO
[2017-01-25 16:13] LABS: ALLENS TEST Pos; BE (BASE EXCESS) -1.4 MEQ/L (0 +/- 2.5); CARBOXYHEMOGLOBIN 1.2 % (0-3); DEVICE NC; HCO3 (ACTUAL BICARBONATE) 22.6 MEQ/L (23-27); HEMOBLOGIN CONTENT 13.7 G/DL (14-18); INSTRUMENT SERIAL # 8083; METHEMOGLOBIN 0.2 % (0-3); O2 CONTENT 17.1 VOL% (18-24); OPERATOR ID 11525; PCO2 (CO2 TENSION) 36 MMHG (35-45); PO2 (O2 TENSION) 63 MMHG (79-93); SAMPLE Arterial; pH 7.42 (7.37-7.43)
[2017-01-25 16:25] LABS: BASOPHILS 0.9 %; BASOPHILS ABSOLUTE 0.09 10/3/uL (0.0-0.16); ER CBC TAT 0 Hrs 13 Mins; HEMATOCRIT 40.3 % (40.0-51.0); HEMOGLOBIN 13.4 g/dL (13.6-17.8); IMMATURE GRANULOCYTES 0.4 %; IMMATURE GRANULOCYTES ABSOLUTE 0.04 10/3/uL (0.0-0.11); LYMPHOCYTES 16.9 %; LYMPHOCYTES ABSOLUTE 1.61 10/3/uL (0.67-4.30); MEAN CORPUS HGB CONC 33.3 g/dL (32.0-36.0); MEAN CORPUSCULAR HEMOGLOB 27.7 pg (26.0-34.0); MONOCYTES 10.5 %; NEUTROPHILS 70.3 %; NEUTROPHILS ABSOLUTE 6.71 10/3/uL (2.02-8.40); PLATELET COUNT 220 10/3/uL (150-400); RBC DISTRIBUTION WIDTH 18.7 % (12.0-16.0); RED CELL COUNT 4.83 10/6/uL (4.7-6.1); WHITE BLOOD CELLS 9.6 10/3/uL (4.5-10.5)
[2017-01-25 16:26] LABS: INTERNATIONAL NORMAL RATI 1.7 UNITS (-); MANUAL DIFF NO %; MEAN CORPUSCULAR VOLUME 83.4 fL (80-100); PARTIAL THROMBO TIME 37.8 SEC (22.5-37.2); PROTIME (NOT ORD) 19.5 SEC (12.0-14.5)
[2017-01-25 16:35] LABS: BUN (BLOOD UREA NITROGEN) 36 MG/DL (6-23); CALCIUM, SERUM 8.6 MG/DL (8.5-10.4); CHLORIDE, SERUM 97 MMOL/L (96-112); CO2 (CARBON DIOXIDE) 25 MMOL/L (24-34); CREATININE 1.89 MG/DL (0.70-1.30); GFR AFRICAN AMERICAN 40 ML/MIN (>=60); GFR NON AFRICAN AMERICAN 35 ML/MIN (>=60); GLUCOSE, SERUM 242 MG/DL (60-99); POTASSIUM, SERUM 4.9 MMOL/L (3.5-5.3); SODIUM, SERUM 130 MMOL/L (135-148)
[2017-01-25 16:36] LABS: CHEST PAIN PROFILE TAT 0 Hrs 24 Mins; TROPONIN I 0.05 NG/ML (<0.05)
[2017-01-25 16:46] LABS: ANISOCYTOSIS 1+ (5-10/OIF) (0-5/OIF); ELLIPTOCYTES 1+ (3-10/OIF) (0-2/OIF); POLYCHROMASIA 1+ (2-5/OIF) (0-1/OIF)
[2017-01-25] MEDS ORDERED: AMITIZA24 PO (17:59)
[2017-01-25] MEDS ORDERED: IMDUR30 PO (18:03)
[2017-01-25] MEDS ORDERED: THERGRANM PO (18:04)
[2017-01-25] MEDS ORDERED: REG5 PO (18:04)
[2017-01-26 03:13] LABS: BUN (BLOOD UREA NITROGEN) 36 MG/DL (6-23); CALCIUM, SERUM 8.6 MG/DL (8.5-10.4); CHLORIDE, SERUM 99 MMOL/L (96-112); CO2 (CARBON DIOXIDE) 28 MMOL/L (24-34); CREATININE 1.84 MG/DL (0.70-1.30); GFR AFRICAN AMERICAN 42 ML/MIN (>=60); GFR NON AFRICAN AMERICAN 36 ML/MIN (>=60); SODIUM, SERUM 135 MMOL/L (135-148)
[2017-01-26 03:16] LABS: GLUCOSE, SERUM 101 MG/DL (60-99); POTASSIUM, SERUM 3.9 MMOL/L (3.5-5.3)
[2017-01-27 02:03] LABS: BASOPHILS 0.2 %; BASOPHILS ABSOLUTE 0.02 10/3/uL (0.0-0.16); EOSINOPHILS 1.6 %; EOSINOPHILS ABSOLUTE 0.15 10/3/uL (0.0-0.53); HEMATOCRIT 37.6 % (40.0-51.0); HEMOGLOBIN 12.6 g/dL (13.6-17.8); IMMATURE GRANULOCYTES 0.4 %; IMMATURE GRANULOCYTES ABSOLUTE 0.04 10/3/uL (0.0-0.11); LYMPHOCYTES 14.9 %; LYMPHOCYTES ABSOLUTE 1.36 10/3/uL (0.67-4.30); MEAN CORPUS HGB CONC 33.5 g/dL (32.0-36.0); MEAN CORPUSCULAR HEMOGLOB 27.3 pg (26.0-34.0); MEAN CORPUSCULAR VOLUME 81.4 fL (80-100); MEAN PLATELET VOLUME 9.3 fL (9.2-13.0); MONOCYTES 8.9 %; MONOCYTES ABSOLUTE 0.81 10/3/uL (0.21-1.20); NEUTROPHILS ABSOLUTE 6.73 10/3/uL (2.02-8.40); PLATELET COUNT 174 10/3/uL (150-400); RBC DISTRIBUTION WIDTH 18.1 % (12.0-16.0); RED CELL COUNT 4.62 10/6/uL (4.7-6.1); WHITE BLOOD CELLS 9.1 10/3/uL (4.5-10.5)
[2017-01-27 02:04] LABS: BASOPHILS 0.3 %; BASOPHILS ABSOLUTE 0.03 10/3/uL (0.0-0.16); EOSINOPHILS 1.3 %; EOSINOPHILS ABSOLUTE 0.12 10/3/uL (0.0-0.53); HEMATOCRIT 37.4 % (40.0-51.0); HEMOGLOBIN 12.7 g/dL (13.6-17.8); IMMATURE GRANULOCYTES 0.3 %; IMMATURE GRANULOCYTES ABSOLUTE 0.03 10/3/uL (0.0-0.11); LYMPHOCYTES 13.4 %; LYMPHOCYTES ABSOLUTE 1.21 10/3/uL (0.67-4.30); MEAN CORPUSCULAR HEMOGLOB 27.5 pg (26.0-34.0); MEAN CORPUSCULAR VOLUME 81.1 fL (80-100); MEAN PLATELET VOLUME 9.3 fL (9.2-13.0); MONOCYTES 9.4 %; MONOCYTES ABSOLUTE 0.85 10/3/uL (0.21-1.20); NEUTROPHILS 75.3 %; NEUTROPHILS ABSOLUTE 6.78 10/3/uL (2.02-8.40); PLATELET COUNT 176 10/3/uL (150-400); RBC DISTRIBUTION WIDTH 18.1 % (12.0-16.0); RED CELL COUNT 4.61 10/6/uL (4.7-6.1)
[2017-01-27 02:09] LABS: MANUAL DIFF NO %
[2017-01-27 02:16] LABS: BUN (BLOOD UREA NITROGEN) 34 MG/DL (6-23); BUN (BLOOD UREA NITROGEN) 35 MG/DL (6-23); CALCIUM, SERUM 8.8 MG/DL (8.5-10.4); CHLORIDE, SERUM 95 MMOL/L (96-112); CO2 (CARBON DIOXIDE) 31 MMOL/L (24-34); CREATININE 1.51 MG/DL (0.70-1.30); CREATININE 1.55 MG/DL (0.70-1.30); GFR AFRICAN AMERICAN 51 ML/MIN (>=60); GFR AFRICAN AMERICAN 53 ML/MIN (>=60); GFR NON AFRICAN AMERICAN 44 ML/MIN (>=60); GFR NON AFRICAN AMERICAN 45 ML/MIN (>=60); GLUCOSE, SERUM 153 MG/DL (60-99); GLUCOSE, SERUM 155 MG/DL (60-99); POTASSIUM, SERUM 3.4 MMOL/L (3.5-5.3); SODIUM, SERUM 132 MMOL/L (135-148); SODIUM, SERUM 133 MMOL/L (135-148)
[2017-01-28 04:49] LABS: ALBUMIN 2.9 G/DL (3.5-5.0); CALCIUM, SERUM 9.2 MG/DL (8.5-10.4); CHLORIDE, SERUM 93 MMOL/L (96-112); CO2 (CARBON DIOXIDE) 33 MMOL/L (24-34); CREATININE 1.47 MG/DL (0.70-1.30); GFR AFRICAN AMERICAN 54 ML/MIN (>=60); GFR NON AFRICAN AMERICAN 47 ML/MIN (>=60); GLUCOSE, SERUM 147 MG/DL (60-99); PHOSPHORUS, SERUM 3.3 MG/DL (2.5-4.5); POTASSIUM, SERUM 3.4 MMOL/L (3.5-5.3); SODIUM, SERUM 130 MMOL/L (135-148)
[2017-01-28 04:50] LABS: BUN (BLOOD UREA NITROGEN) 31 MG/DL (6-23)
[2017-01-29 06:07] LABS: ALBUMIN 2.9 G/DL (3.5-5.0); BUN (BLOOD UREA NITROGEN) 31 MG/DL (6-23); CALCIUM, SERUM 9.1 MG/DL (8.5-10.4); CHLORIDE, SERUM 93 MMOL/L (96-112); CO2 (CARBON DIOXIDE) 32 MMOL/L (24-34); CREATININE 1.56 MG/DL (0.70-1.30); GFR AFRICAN AMERICAN 51 ML/MIN (>=60); GFR NON AFRICAN AMERICAN 44 ML/MIN (>=60); PHOSPHORUS, SERUM 3.2 MG/DL (2.5-4.5); POTASSIUM, SERUM 3.8 MMOL/L (3.5-5.3); SODIUM, SERUM 128 MMOL/L (135-148)
[2017-01-29 06:17] LABS: GLUCOSE, SERUM 210 MG/DL (60-99)
[2017-01-30 07:14] LABS: BUN (BLOOD UREA NITROGEN) 30 MG/DL (6-23); CALCIUM, SERUM 9.2 MG/DL (8.5-10.4); CHLORIDE, SERUM 94 MMOL/L (96-112); CO2 (CARBON DIOXIDE) 26 MMOL/L (24-34); CREATININE 1.54 MG/DL (0.70-1.30); GFR AFRICAN AMERICAN 51 ML/MIN (>=60); GFR NON AFRICAN AMERICAN 44 ML/MIN (>=60); GLUCOSE, SERUM 153 MG/DL (60-99); PHOSPHORUS, SERUM 3.5 MG/DL (2.5-4.5); POTASSIUM, SERUM 3.9 MMOL/L (3.5-5.3); SODIUM, SERUM 132 MMOL/L (135-148)
[2017-01-31 04:36] LABS: ALBUMIN 2.9 G/DL (3.5-5.0); CHLORIDE, SERUM 92 MMOL/L (96-112); CO2 (CARBON DIOXIDE) 28 MMOL/L (24-34); CREATININE 1.68 MG/DL (0.70-1.30); GFR AFRICAN AMERICAN 46 ML/MIN (>=60); GFR NON AFRICAN AMERICAN 40 ML/MIN (>=60); GLUCOSE, SERUM 136 MG/DL (60-99); PHOSPHORUS, SERUM 3.6 MG/DL (2.5-4.5); POTASSIUM, SERUM 4.2 MMOL/L (3.5-5.3); SODIUM, SERUM 129 MMOL/L (135-148)
[2017-01-31 04:37] LABS: BUN (BLOOD UREA NITROGEN) 34 MG/DL (6-23)
[2017-01-31 16:45] LABS: ALLENS TEST Pos; BE (BASE EXCESS) 4.2 MEQ/L (0 +/- 2.5); DEVICE NC; HCO3 (ACTUAL BICARBONATE) 27.2 MEQ/L (23-27); INSTRUMENT SERIAL # 35151; METHEMOGLOBIN 0.4 % (0-3); O2 CONTENT 18.1 VOL% (18-24); PCO2 (CO2 TENSION) 36 MMHG (35-45); PO2 (O2 TENSION) 69 MMHG (79-93); SAMPLE Arterial
[2017-01-31 19:53] LABS: ASCORBIC ACID (UR NOT ORDER) NEG (NEG); BILIRUBIN, URINE NEGATIVE (NEG); KETONE, URINE NEGATIVE (NEG); LEUKOCYTE ESTERASE(NOT OR MOD (NEG); WBC (NOT ORDERED) (RFLEX) 24 (0-5)
[2017-02-01 04:36] LABS: BASOPHILS 0.2 %; BASOPHILS ABSOLUTE 0.02 10/3/uL (0.0-0.16); EOSINOPHILS 0.7 %; EOSINOPHILS ABSOLUTE 0.07 10/3/uL (0.0-0.53); HEMATOCRIT 38.7 % (40.0-51.0); HEMOGLOBIN 13.1 g/dL (13.6-17.8); IMMATURE GRANULOCYTES 0.3 %; IMMATURE GRANULOCYTES ABSOLUTE 0.03 10/3/uL (0.0-0.11); LYMPHOCYTES ABSOLUTE 1.41 10/3/uL (0.67-4.30); MEAN CORPUS HGB CONC 33.9 g/dL (32.0-36.0); MEAN CORPUSCULAR HEMOGLOB 27.3 pg (26.0-34.0); MEAN CORPUSCULAR VOLUME 80.6 fL (80-100); MEAN PLATELET VOLUME 10.1 fL (9.2-13.0); MONOCYTES 11.1 %; MONOCYTES ABSOLUTE 1.04 10/3/uL (0.21-1.20); NEUTROPHILS 72.7 %; NEUTROPHILS ABSOLUTE 6.83 10/3/uL (2.02-8.40); PLATELET COUNT 210 10/3/uL (150-400); RBC DISTRIBUTION WIDTH 18.4 % (12.0-16.0); WHITE BLOOD CELLS 9.4 10/3/uL (4.5-10.5)
[2017-02-01 04:37] LABS: MANUAL DIFF NO %
[2017-02-01 04:47] LABS: BUN (BLOOD UREA NITROGEN) 34 MG/DL (6-23); CALCIUM, SERUM 8.9 MG/DL (8.5-10.4); CHLORIDE, SERUM 94 MMOL/L (96-112); CO2 (CARBON DIOXIDE) 27 MMOL/L (24-34); CREATININE 1.67 MG/DL (0.70-1.30); GFR AFRICAN AMERICAN 47 ML/MIN (>=60); GFR NON AFRICAN AMERICAN 40 ML/MIN (>=60); GLUCOSE, SERUM 105 MG/DL (60-99); SODIUM, SERUM 131 MMOL/L (135-148)
[2017-02-02 06:51] LABS: BUN (BLOOD UREA NITROGEN) 32 MG/DL (6-23); CALCIUM, SERUM 8.6 MG/DL (8.5-10.4); CHLORIDE, SERUM 92 MMOL/L (96-112); CO2 (CARBON DIOXIDE) 29 MMOL/L (24-34); CREATININE 1.71 MG/DL (0.70-1.30); GFR AFRICAN AMERICAN 45 ML/MIN (>=60); GFR NON AFRICAN AMERICAN 39 ML/MIN (>=60); GLUCOSE, SERUM 70 MG/DL (60-99); SODIUM, SERUM 128 MMOL/L (135-148)
[2017-02-03 05:26] LABS: BUN (BLOOD UREA NITROGEN) 29 MG/DL (6-23); CHLORIDE, SERUM 93 MMOL/L (96-112); CO2 (CARBON DIOXIDE) 31 MMOL/L (24-34); CREATININE 1.49 MG/DL (0.70-1.30); GFR AFRICAN AMERICAN 54 ML/MIN (>=60); GFR NON AFRICAN AMERICAN 46 ML/MIN (>=60); POTASSIUM, SERUM 3.3 MMOL/L (3.5-5.3); SODIUM, SERUM 133 MMOL/L (135-148)
[2017-02-03 05:27] LABS: GLUCOSE, SERUM 53 MG/DL (60-99)
[2017-02-04 06:36] LABS: ALBUMIN 2.8 G/DL (3.5-5.0); BUN (BLOOD UREA NITROGEN) 30 MG/DL (6-23); CALCIUM, SERUM 8.8 MG/DL (8.5-10.4); CHLORIDE, SERUM 89 MMOL/L (96-112); CO2 (CARBON DIOXIDE) 31 MMOL/L (24-34); CREATININE 1.53 MG/DL (0.70-1.30); GFR AFRICAN AMERICAN 52 ML/MIN (>=60); GFR NON AFRICAN AMERICAN 45 ML/MIN (>=60); PHOSPHORUS, SERUM 3.7 MG/DL (2.5-4.5); POTASSIUM, SERUM 3.5 MMOL/L (3.5-5.3); SODIUM, SERUM 130 MMOL/L (135-148)
[2017-02-04 06:38] LABS: GLUCOSE, SERUM 87 MG/DL (60-99)
== END 2017-02-04 16:39 | disposition hospice, home (50) | DRG 291 ==
LOC: ER 14:37 → 7NO 18:46
PROVIDERS: Emergency Medicine; Hospitalist; Internal Medicine; Internal Medicine Clinical Cardiac Electrophysiology; Nurse Practitioner Family
DX: I13.0 Hypertensive heart and chronic kidney disease with heart failure and stage 1 through stage 4 chronic kidney disease, or unspecified chronic kidney disease (principal); I50.43 Acute on chronic combined systolic (congestive) and diastolic (congestive) heart failure; J96.21 Acute and chronic respiratory failure with hypoxia; I42.1 Obstructive hypertrophic cardiomyopathy; E87.1 Hypo-osmolality and hyponatremia; I47.1 Supraventricular tachycardia; I48.2 Chronic atrial fibrillation; N18.3 Chronic kidney disease, stage 3 (moderate); Z51.5 Encounter for palliative care; I27.81 Cor pulmonale (chronic); I25.5 Ischemic cardiomyopathy; E87.6 Hypokalemia; E11.22 Type 2 diabetes mellitus with diabetic chronic kidney disease; I25.10 Atherosclerotic heart disease of native coronary artery without angina pectoris; I73.9 Peripheral vascular disease, unspecified; K59.00 Constipation, unspecified; E03.9 Hypothyroidism, unspecified; E78.5 Hyperlipidemia, unspecified; F43.21 Adjustment disorder with depressed mood; K21.9 Gastro-esophageal reflux disease without esophagitis; Z95.1 Presence of aortocoronary bypass graft; G47.33 Obstructive sleep apnea (adult) (pediatric); Z91.19 Patient's noncompliance with other medical treatment and regimen; Z87.891 Personal history of nicotine dependence; Z66 Do not resuscitate; Z91.81 History of falling; Z79.4 Long term (current) use of insulin
CPT/HCPCS: 36600; 71010; 74000; 80048; 80069; 81001; 82805; 82962; 83735; 83880; 84132; 84484; 85025; 85610; 85730; 87086; 93005; 94640; 96374; 97162-GP; 97530-GP; 99285; A9270-GY; J1940; J2405